=== PATIENT | female | born 1955 | race African-American/Black ===

== ENCOUNTER 2020-01-10 14:49 | Emergency (ER) | payer MEDICARE, OTHER ==
[~2020-01-10] VITALS: Ht 172.7 cm; Wt 95.3 kg
[2020-01-10 15:45] LABS: Basophils # (auto) 0.1 10 ^3/uL (0-0.2); Basophils % (auto) 1.3 % (0.0-2.0); Eosinophils # (auto) 0.3 10 ^3/uL (0-0.8); Eosinophils % (auto) 5.8 % (0.0-7.0); Hematocrit 37.1 % (36.0-46.0); Hemoglobin 12.2 g/dL (12.2-16.2); Lymphocytes # (auto) 1.8 10 ^3/uL (0.4-5.4); Lymphocytes % (auto) 35.7 % (10.0-50.0); Mean Corpuscular Hgb Conc. 32.9 g/dL (32.0-36.0); Mean Corpuscular Volume 81.9 fL (80.0-100.0); Monocytes # (auto) 0.7 10 ^3/uL (0-1.3); Monocytes % (auto) 13.9 % (0.0-12.0); Neutrophils # (auto) 2.2 10 ^3/uL (1.6-8.6); Neutrophils % (auto) 43.3 % (37.0-80.0); Platelet Count (auto) 229 10^3/uL (140-450); Red Blood Cells 4.53 10^6/uL (4.0-5.20); Red Cell Distribution Width 17.3 % (11.8-14.3)
[2020-01-10 15:57] LABS: Alanine Aminotransferase 24 U/L (13-56); Albumin 3.4 g/dL (3.4-5.0); Anion Gap 5 (5-15); Aspartate Aminotransferase 19 U/L (15-37); BUN/Creatinine Ratio 13.9; Blood Urea Nitrogen 17 mg/dL (7-18); Calcium 8.3 mg/dL (8.5-10.1); Carbon Dioxide 27 mmol/L (21-32); Chloride 107 mmol/L (98-107); GFR African American 57 mL/min; GFR Non-African American 47 mL/min; Glucose 103 mg/dL (74-106); Magnesium 1.9 mg/dL (1.6-2.6); Potassium 3.1 mmol/L (3.5-5.1); Sodium 139 mmol/L (136-145)
[2020-01-10 16:02] LABS: Alkaline Phosphatase 72 U/L (45-117); Bilirubin, Total 0.3 mg/dL (0.2-1.0); Total Protein 7.9 g/dL (6.4-8.2)
[2020-01-10] MEDS ORDERED: SODIUM CHLORIDE 0.9% 1,000 ML IV SCH (16:14)
[2020-01-10] MEDS ORDERED: MORPHINE SULFATE 4 MG/ML SYR/VIAL IV PRN (16:15)
[2020-01-10] MEDS ORDERED: ALUM & MAG HYDROX-SIMETH LIQ(MAALOX) 30 ML PO ONE (16:15)
[2020-01-10] MEDS ORDERED: POTASSIUM CHL 20MEQ/100ML 100 ML IV ONE ×2 (16:15→16:45)
[2020-01-10] MEDS ORDERED: MORPHINE SULF INJ 2 MG/ML SYRINGE 1ML IV PRN (16:15)
[2020-01-10] MEDS ORDERED: NITROGLYCERIN 0.4 MG SL TAB SL PRN ×2 (16:15)
[2020-01-10] MEDS ORDERED: FUROSEMIDE 40 MG/4 ML VIAL IV ONE (16:45)
[2020-01-10] MEDS ORDERED: CALCIUM GLUC 4.65meq/50ml D5AE 50 ML IV ONE (16:45)
[2020-01-10] MEDS ORDERED: MAGNESIUM SULFATE 1GM/100ML 100 ML IV ONE (16:45)
[2020-01-10 17:36] LABS: Urine WBC None Seen /hpf (0 - 5)
[2020-01-10 17:49] LABS: Urine Bacteria NONE SEEN /hpf (None Seen); Urine Blood Negative /uL (Negative); Urine Specific Gravity 1.012 (1.001-1.035)
[2020-01-10] MEDS ORDERED: LORazepam 2MG/ML-1ML VIAL IV PRN ×2 (19:00)
[2020-01-10] MEDS ORDERED: ASPirin 325 MG TAB PO SCH (19:00)
[2020-01-10 19:47] LABS: Cholesterol 198 mg/dL (< 200)
[2020-01-10 19:50] LABS: Amphetamine Screen, Urine NEGATIVE (NEGATIVE); Barbiturate Scree,Urine NEGATIVE (NEGATIVE); Benzodiazephine Screen, Urine NEGATIVE (NEGATIVE); Cannabinoid Screen, Urine NEGATIVE (NEGATIVE); Cocaine Screen, Urine NEGATIVE (NEGATIVE); Opiate Scree,Urine NEGATIVE (NEGATIVE); Phencyclidine Screen, Urine NEGATIVE (NEGATIVE)
[2020-01-10 19:50] LABS: HDL Cholesterol 50 mg/dL (40-59); LDL Cholesterol 122 mg/dL (< 100); Triglycerides 159 mg/dL (< 150)
[2020-01-10] MEDS ORDERED: ATORVASTATIN 20 MG TAB PO SCH (22:00)
[2020-01-10] MEDS ORDERED: CARVEDILOL 3.125 MG TAB PO SCH (22:00)
[2020-01-10] MEDS ORDERED: ACETAMINOPHEN 500 MG TAB PO ONE (22:45)
[2020-01-10 23:45] VITALS: BP 128/62
[2020-01-11] MEDS ORDERED: FUROSEMIDE 40 MG/4 ML VIAL IV SCH (06:00)
[2020-01-11] MEDS ORDERED: LEVOTHYROXINE SODIUM 50 MCG TAB PO SCH (07:00)
[2020-01-11] MEDS ORDERED: LIOTHYRONINE PO SCH (07:00)
[2020-01-11] MEDS ORDERED: POTASSIUM CHL 20 Meq TABLET PO SCH (10:00)
[2020-01-11] MEDS ORDERED: ASPirin 81 mg TAB PO SCH (10:00)
[2020-01-11] MEDS ORDERED: ENOXAPARIN SOD 40 MG/0.4 ML SYRINGE SC SCH (10:00)
[2020-01-11] MEDS ORDERED: DOCUSATE SOD 100 MG CAP PO SCH (10:00)
[2020-01-11] MEDS ORDERED: LISINOPRIL 5 MG TAB PO SCH (10:00)
== END 2020-01-11 00:22 | disposition short-term general hospital (02) ==
LOC: EDBD 14:49 → ER 14:49 → UNDOADMIN 14:50 → TELE 14:50 → ER 01-11 00:22
DX: E87.6 Hypokalemia (principal); I49.9 Cardiac arrhythmia, unspecified; R53.1 Weakness; R42 Dizziness and giddiness; I10 Essential (primary) hypertension; E07.9 Disorder of thyroid, unspecified
CPT/HCPCS: 36415; 70450; 71045; 80053; 80061; 80307; 81001; 82962; 83735; 84484; 85025; 96365; 96366; 96368; 96375; 99285; J0610; J1940; J3475; J3480; J7030; 93005